=== PATIENT | male | born 1940 | race Caucasian/White ===

== ENCOUNTER 2019-10-28 00:49 | Inpatient (IN) | payer MEDICARE, OTHER ==
[~2019-10-28] VITALS: Ht 175.3 cm; Wt 95.3 kg
[2019-10-28] MEDS ORDERED: PLEASE ENTER ALLERGIES MC SCH (02:30)
[2019-10-28] MEDS ORDERED: HEPARIN 25,000 UNITS/250ML PMX 250 ML IV PRN ×2 (02:30→08:00)
[2019-10-28 02:34] VITALS: BP 112/73
[2019-10-28] MEDS ORDERED: GUAIFENESIN/DM 200-20MG, 10ML UDC PO PRN (03:30)
[2019-10-28] MEDS ORDERED: TRAZODONE 50MG TABLET PO PRN (03:30)
[2019-10-28] MEDS ORDERED: ONDANSETRON 2MG/ML, 2ML IVPush PRN (03:30)
[2019-10-28] MEDS ORDERED: ONDANSETRON ODT 4 MG PO PRN (03:30)
[2019-10-28] MEDS ORDERED: POLYETHYLENE GLYCOL 17 GM PACKET PO PRN (03:30)
[2019-10-28] MEDS ORDERED: hydrALAzine 20 MG/ML, 1ML IVPush PRN (03:30)
[2019-10-28] MEDS ORDERED: BISACODYL 10 MG SUPP PR PRN (03:30)
[2019-10-28 03:37] LABS: BASOPHILS # (AUTO) 0.02 x10^3/uL (0-0.1); BASOPHILS % (AUTO) 0 % (0-1); EOSINOPHILS % (AUTO) 1 % (1-7); LYMPHOCYTES # (AUTO) 1.27 x10^3/uL (1-3.4); LYMPHOCYTES % (AUTO) 12 % (22-44); MD NO; MEAN CORPUSCULAR HEMOGLOBIN 30.9 pg (27.5-34.5); MEAN CORPUSCULAR HGB CONC 33.3 g/dL (33.2-36.2); MEAN CORPUSCULAR VOLUME 92.7 fL (81-97); MONOCYTES % (AUTO) 8 % (2-9); NEUTROPHILS # (AUTO) 8.42 x10^3/uL (1.8-6.8); NEUTROPHILS % (AUTO) 79 % (42-75); PLATELET COUNT 228 x10^3/uL (130-400); RED BLOOD COUNT 3.57 x10^6/uL (4.38-5.82); RED CELL DISTRIBUTION WIDTH 14.8 % (9.4-14.8)
[2019-10-28 03:39] LABS: HCT (SEDRATE) 33.1 % (39.2-51.8)
[2019-10-28 03:48] LABS: ANION GAP 7 mmol/L (5-15); CALCIUM 8.3 mg/dL (8.5-10.1); CHLORIDE 110 mmol/L (98-107); CREATININE 0.95 mg/dL (0.7-1.3)
[2019-10-28] MEDS: SODIUM CHLORIDE 0.9% 1,000 ML IV SCH ×2 (03:49→17:00)
[2019-10-28 03:52] LABS: FREE T4 (FREE THYROXINE) 1.05 ng/dL (0.76-1.46); TROPONIN I 0.026 ng/mL (0.000-0.045)
[2019-10-28] MEDS ORDERED: FINA5TAB PO (04:00)
[2019-10-28 06:57] VITALS: BP 106/71
[2019-10-28] MEDS ORDERED: HEPARIN 5,000 UNITS/ML, 1ML IV PRN (08:00)
[2019-10-28 09:41] LABS: TROPONIN I 0.019 ng/mL (0.000-0.045)
[2019-10-28] MEDS: FAMOTIDINE 20 MG TABLET PO SCH ×2 (10:26→20:11)
[2019-10-28 12:05] VITALS: BP 118/76
[2019-10-28] MEDS ORDERED: ATOR20TA37 PO (12:39)
[2019-10-28] MEDS: ACETAMINOPHEN 325 MG TABLET PO PRN (16:28)
[2019-10-28 20:05] VITALS: BP 107/67
[2019-10-28] MEDS: ATORVASTATIN 20 MG TABLET PO SCH (20:11)
[2019-10-29] MEDS: SODIUM CHLORIDE 0.9% 1,000 ML IV SCH ×2 (02:13→14:47)
[2019-10-29 02:14] VITALS: BP 122/75
[2019-10-29] MEDS: ACETAMINOPHEN 325 MG TABLET PO PRN (03:19)
[2019-10-29 03:54] LABS: RAPID INFLUENZA A Negative (Negative); RAPID INFLUENZA B Negative (Negative)
[2019-10-29 04:54] LABS: BASOPHILS # (AUTO) 0.01 x10^3/uL (0-0.1); BASOPHILS % (AUTO) 0 % (0-1); EOSINOPHILS # (AUTO) 0.07 x10^3/uL (0-0.4); EOSINOPHILS % (AUTO) 1 % (1-7); LYMPHOCYTES # (AUTO) 0.91 x10^3/uL (1-3.4); LYMPHOCYTES % (AUTO) 8 % (22-44); MD NO; MEAN CORPUSCULAR HGB CONC 33.4 g/dL (33.2-36.2); MEAN CORPUSCULAR VOLUME 92.9 fL (81-97); MEAN PLATELET VOLUME 8.2 fL (7.4-10.4); MONOCYTES # (AUTO) 1.12 x10^3/uL (0.2-0.8); MONOCYTES % (AUTO) 10 % (2-9); NEUTROPHILS # (AUTO) 8.77 x10^3/uL (1.8-6.8); NEUTROPHILS % (AUTO) 81 % (42-75); PLATELET COUNT 217 x10^3/uL (130-400); RED BLOOD COUNT 3.41 x10^6/uL (4.38-5.82); RED CELL DISTRIBUTION WIDTH 14.7 % (9.4-14.8)
[2019-10-29 05:00] LABS: ANION GAP 8 mmol/L (5-15); CALCIUM 8.1 mg/dL (8.5-10.1); CHLORIDE 109 mmol/L (98-107); CREATININE 0.83 mg/dL (0.7-1.3)
[2019-10-29 06:40] VITALS: BP 122/74
[2019-10-29] MEDS: FINASTERIDE 5 MG TABLET PO SCH (10:27)
[2019-10-29] MEDS: FAMOTIDINE 20 MG TABLET PO SCH ×2 (10:29→21:12)
[2019-10-29] MEDS: OXYcodone IR 5MG TABLET PO PRN ×2 (11:17→21:17)
[2019-10-29 12:45] VITALS: BP 124/76
[2019-10-29 19:58] VITALS: BP 120/76
[2019-10-29] MEDS: APIXABAN 5 MG TABLET PO SCH (21:12)
[2019-10-29] MEDS: ATORVASTATIN 20 MG TABLET PO SCH (21:13)
[2019-10-29 23:43] VITALS: BP 103/67
[2019-10-30] MEDS: SODIUM CHLORIDE 0.9% 1,000 ML IV SCH (00:33)
[2019-10-30 01:12] VITALS: BP 106/68
[2019-10-30 08:01] VITALS: BP 104/62
[2019-10-30 08:06] LABS: BASOPHILS # (AUTO) 0.02 x10^3/uL (0-0.1); BASOPHILS % (AUTO) 0 % (0-1); EOSINOPHILS # (AUTO) 0.03 x10^3/uL (0-0.4); EOSINOPHILS % (AUTO) 0 % (1-7); LYMPHOCYTES # (AUTO) 0.99 x10^3/uL (1-3.4); LYMPHOCYTES % (AUTO) 11 % (22-44); MD NO; MEAN CORPUSCULAR HEMOGLOBIN 30.9 pg (27.5-34.5); MEAN CORPUSCULAR HGB CONC 33.2 g/dL (33.2-36.2); MEAN CORPUSCULAR VOLUME 92.9 fL (81-97); MEAN PLATELET VOLUME 7.9 fL (7.4-10.4); MONOCYTES # (AUTO) 0.79 x10^3/uL (0.2-0.8); MONOCYTES % (AUTO) 9 % (2-9); NEUTROPHILS # (AUTO) 6.93 x10^3/uL (1.8-6.8); NEUTROPHILS % (AUTO) 79 % (42-75); PLATELET COUNT 224 x10^3/uL (130-400); RED BLOOD COUNT 3.38 x10^6/uL (4.38-5.82); RED CELL DISTRIBUTION WIDTH 14.3 % (9.4-14.8)
[2019-10-30] MEDS: FAMOTIDINE 20 MG TABLET PO SCH ×2 (10:07→20:50)
[2019-10-30] MEDS: APIXABAN 5 MG TABLET PO SCH ×2 (10:07→20:50)
[2019-10-30] MEDS: FINASTERIDE 5 MG TABLET PO SCH (10:08)
[2019-10-30 15:55] VITALS: BP 125/78
[2019-10-30 19:45] VITALS: BP 116/69
[2019-10-30] MEDS: ATORVASTATIN 20 MG TABLET PO SCH (20:50)
[2019-10-31 01:25] VITALS: BP 125/74
[2019-10-31 01:49] LABS: MICROSCOPIC AUTO
[2019-10-31 01:50] LABS: CULTURE INDICATED? YES
[2019-10-31 06:44] LABS: BASOPHILS % (AUTO) 0 % (0-1); EOSINOPHILS # (AUTO) 0.06 x10^3/uL (0-0.4); EOSINOPHILS % (AUTO) 1 % (1-7); LYMPHOCYTES # (AUTO) 0.74 x10^3/uL (1-3.4); LYMPHOCYTES % (AUTO) 9 % (22-44); MD NO; MEAN CORPUSCULAR HGB CONC 33.7 g/dL (33.2-36.2); MEAN CORPUSCULAR VOLUME 91.8 fL (81-97); MEAN PLATELET VOLUME 7.9 fL (7.4-10.4); MONOCYTES # (AUTO) 0.76 x10^3/uL (0.2-0.8); MONOCYTES % (AUTO) 9 % (2-9); NEUTROPHILS # (AUTO) 7.02 x10^3/uL (1.8-6.8); NEUTROPHILS % (AUTO) 82 % (42-75); PLATELET COUNT 266 x10^3/uL (130-400); RED CELL DISTRIBUTION WIDTH 14.4 % (9.4-14.8)
[2019-10-31 06:59] LABS: ANION GAP 7 mmol/L (5-15); CALCIUM 8.3 mg/dL (8.5-10.1); CHLORIDE 109 mmol/L (98-107)
[2019-10-31 07:26] VITALS: BP 149/77
[2019-10-31] MEDS: FAMOTIDINE 20 MG TABLET PO SCH (08:06)
[2019-10-31] MEDS: FINASTERIDE 5 MG TABLET PO SCH (08:06)
[2019-10-31] MEDS: APIXABAN 5 MG TABLET PO SCH (08:06)
[2019-10-31] MEDS ORDERED: APIX5TAB PO (16:29)
[2019-10-31] MEDS ORDERED: LEVO750T6 PO (16:33)
== END 2019-10-31 16:54 | disposition home or self-care (01) | DRG 175 ==
LOC: 5SO 02:25 → 4WST 10-30 00:49
PROVIDERS: ADMIT Hospitalist; ATTEND Hospitalist
DX: I26.99 Other pulmonary embolism without acute cor pulmonale (principal); J96.01 Acute respiratory failure with hypoxia; J18.9 Pneumonia, unspecified organism; E78.1 Pure hyperglyceridemia; K44.9 Diaphragmatic hernia without obstruction or gangrene; M19.90 Unspecified osteoarthritis, unspecified site; N40.0 Benign prostatic hyperplasia without lower urinary tract symptoms; Z79.01 Long term (current) use of anticoagulants; Z86.711 Personal history of pulmonary embolism; Z99.81 Dependence on supplemental oxygen; Z91.81 History of falling
CPT/HCPCS: 36415; 71045; 80048; 81001; 83735; 84100; 84145; 84439; 84443; 84484; 85014; 85018; 85025; 85520; 85651; 87086; 87400; 93306; 93356; 93970; G0378; J1644; J7030